=== PATIENT | male | born 1945 | race Caucasian/White ===

== ENCOUNTER 2018-01-11 12:02 | Outpatient (CLI) | payer MEDICARE, BC ==
--- NOTE | 2018-01-11 14:02 | RAD ---
CHEST 2 VIEWS: Date: 01/11/18 HISTORY: Fall. Chest pain. FINDINGS: Cardiac silhouette and pulmonary vasculature unremarkable. Parenchymal opacity at the left base parti ally obscures the left anterior hemidiaphragm. No lobar consolidation, pneumothorax, or pleural fluid are apparent. There are degenerative changes of the thoracic spine. No displaced rib fractures are a pparent on the 2 view chest exam. IMPRESSION: Left basilar parenchymal opacity could represent atelectasis, pneumonitis, or contusion. No active ca rdiopulmonary abnormalities are otherwise demonstrated. POS: [facility]
== END 2018-01-11 12:03 | disposition home or self-care (01) ==
LOC: SCSRAD 12:02
PROVIDERS: ATTEND Family Medicine
DX: J18.9 Pneumonia, unspecified organism (principal); J44.9 Chronic obstructive pulmonary disease, unspecified
CPT/HCPCS: 71046

== ENCOUNTER 2018-08-29 15:10 | Outpatient (CLI) | payer MEDICARE, BC ==
--- NOTE | 2018-08-29 17:07 | RAD ---
CHEST TWO VIEWS: Indication: Shortness of breath. IMPRESSION: No acute cardiopulmonary abnormality. The examination does not appear appreciably changed from compar mahad dated 01-11-18. POS: [facility]
== END 2018-08-29 15:11 | disposition home or self-care (01) ==
LOC: SCSRAD 15:10
PROVIDERS: ATTEND Family Medicine
DX: J44.9 Chronic obstructive pulmonary disease, unspecified (principal); R05 Cough
CPT/HCPCS: 71046

== ENCOUNTER 2018-12-23 14:59 | Outpatient (CLI) | payer MEDICARE, BC ==
--- NOTE | 2018-12-23 15:21 | RAD ---
EXAM: 3 views of the lumbosacral spine HISTORY: Low back pain and right hip pain for 2 weeks COMPARISON: None FINDINGS: 3 views of the lumbosacral spine shows normal height and alignment of the vertebral bodies and intervertebral discs without fracture or subluxation. Moderate osteophytes are seen in the mid lumbar spine. The sacroiliac joints are unremarkable. Vascular calcic lesions are seen. A stent graft is seen in th e left common iliac artery. IMPRESSION: Moderate degenerative changes of the lumbar spine without acute osseous abnormality.
--- NOTE | 2018-12-23 15:33 | RAD ---
AP PELVIS RADIOGRAPH: 12/23/18 HISTORY: Right hip pain for two weeks. COMPARISON: None available. FINDINGS: No fracture or dislocation is appreciated on this AP view of the pelvis. No sclerotic or lytic osseou s lesions are identified. Vascular calcifications are seen in the iliac and femoral arteries. Vascula r stent overlies the region of the distal left common as well as proximal left external iliac arterie s. IMPRESSION: 1. No acute osseous abnormality. 2. Vascular calcifications. POS: [facility]
== END 2018-12-23 15:00 | disposition home or self-care (01) ==
LOC: SCSRAD 14:59
PROVIDERS: ATTEND Family Medicine
DX: M54.5 Low back pain (principal); M47.816 Spondylosis without myelopathy or radiculopathy, lumbar region; I70.209 Unspecified atherosclerosis of native arteries of extremities, unspecified extremity
CPT/HCPCS: 72100; 72170

== ENCOUNTER 2019-06-08 10:22 | Outpatient (CLI) | payer MEDICARE, BC ==
--- NOTE | 2019-06-08 11:33 | MRI ---
MR the lumbar spine without contrast INDICATION: Low back pain and bilateral hip pain COMPARISON: Lumbar spinal radiograph dated December 23, 2018 TECHNIQUE: Multiplanar multisequence MR images were obtained of lumbar spine without IV contrast. FINDINGS: Bone marrow: Bone marrow signal intensity appears within normal limits. Distal spinal cord and conus: Normal. The conus seen to terminate at L1. Visualized retroperitoneum and paraspinal soft tissues: Normal. Vertebral levels: L5-S1: There is a broad-based bulge with a superimposed central protrusion. There is moderate right a nd mild left facet joint degenerative change. There is no appreciable central canal or neural foraminal narrowing.. L4-5: There is a broad-based bulge with facet joint degenerative change. There is a superimposed ante rior medial projecting synovial cyst measuring 6 mm off the right L4-5 facet complex. The constellation of findings induces severe central canal narrowing with moderate to severe right and mi ld left neural foraminal narrowing. L3-4: There is a broad-based bulge with facet joint degenerative change and ligamentum flavum hypertr ophy inducing moderate central canal narrowing with moderate bilateral neural foraminal narrowing L2-3: There is a broad-based bulge with facet hypertrophy inducing mild central canal narrowing and m ild bilateral neural foraminal narrowing L1-L2: No appreciable central canal or neuroforaminal narrowing. T12-L1: No appreciable central canal or neuroforaminal narrowing. IMPRESSION: 1. Severe central canal narrowing with moderate to severe right and mild left neural foraminal narrow ing at L4-5. 2. Moderate central canal narrowing moderate bilateral neural foraminal narrowing at L3-4. 3. Mild central canal narrowing mild bilateral neural foraminal narrowing at L2-3.
== END 2019-06-08 10:23 | disposition home or self-care (01) ==
LOC: BICMRI 10:22
PROVIDERS: ATTEND Family Medicine
DX: M54.9 Dorsalgia, unspecified (principal); M48.061 Spinal stenosis, lumbar region without neurogenic claudication
CPT/HCPCS: 72148

== ENCOUNTER 2019-09-20 10:47 | Outpatient (CLI) | payer MEDICARE, BC ==
--- NOTE | 2019-09-20 12:11 | RAD ---
LUMBAR SPINE 4 VIEWS: Date: 09/20/2019 HISTORY: Low back pain. M54.5. Left leg numbness. COMPARISON: 12/23/2018. FINDINGS: Multilevel disc osteophytosis. Mild anterolisthesis of L4 on L5 without abnormal translation between flexion and extension. IMPRESSION: Multilevel spondylosis. Very mild anterolisthesis at L4-L5 without abnormal translation. POS: [facility]
== END 2019-09-20 10:48 | disposition home or self-care (01) ==
LOC: TBSIIMAG 10:47
PROVIDERS: ATTEND Surgery
DX: M54.5 Low back pain (principal); M43.16 Spondylolisthesis, lumbar region; M47.816 Spondylosis without myelopathy or radiculopathy, lumbar region
CPT/HCPCS: 72110

== ENCOUNTER 2019-11-20 07:50 | Outpatient (CLI) | payer MEDICARE, BC, OTHER ==
[2019-11-20 15:35] VITALS: BMI 31.8
[2019-11-20 17:22] LABS: #Basophils 0.1 thou/uL (0.0-0.2); #Eosinphils 0.3 thou/uL (0.0-0.7); #Lymphocytes 2.7 thou/uL (1.20-3.40); #Neutrophils 4.7 thou/uL (1.40-6.50); %Eosinophils 3.9 % (0.0-10.0); %Lymphocytes 30.7 % (21.0-51.0); %Monocytes 11.3 % (0.0-10.0); %Neutrophils 53.1 % (42.0-75.0); Hemoglobin 17.2 g/dL (14.0-18.0); Mean Corpuscular HGB CONC 32.6 g/dL (32.0-36.0); Mean Corpuscular Hemoglobin 30.5 pg (27.0-31.0); Mean Corpuscular Volume 93.5 fL (78.0-98.0); Mean Platelet Volume 8.7 fL (7.4-10.4); Platelet Count 217 thou/uL (130-400); RBC Distribution Width 12.6 % (11.5-14.5); Red Blood Cell (RBC) Count 5.63 mill/uL (4.70-6.10); White Blood Cell (WBC) Count 8.8 thou/uL (4.8-10.8)
[2019-11-20 17:24] LABS: INR-International Normal Ratio 0.9; PTT 27.5 SEC (22.9-36.1)
[2019-11-20 17:39] LABS: Anion Gap 14 mmol/L (10-20); BUN (Urea Nitrogen) 17 mg/dL (8.4-25.7); Calc. Creatinine Clearance 80 mL/min (70-130); Carbon Dioxide 22 mmol/L (23-31); Chloride 108 mmol/L (98-107); Estimated GFR-MDRD 58; Glucose 174 mg/dL (83-110); Potassium 3.9 mmol/L (3.5-5.1); Sodium 140 mmol/L (136-145)
--- NOTE | 2019-11-20 21:16 | EKG ---
Test Reason : Blood Pressure : / mmHG Vent. Rate : 076 BPM Atrial Rate : 076 BPM P-R Int : 162 ms QRS Dur : 092 ms QT Int : 378 ms P-R-T Axes : 023 -24 000 degrees QTc Int : 425 ms Normal sinus rhythm Moderate voltage criteria for LVH, may be normal variant Inferior infarct , age undetermined Abnormal ECG No previous ECGs available Confirmed by Jose Luis FERGUSON ([id number]) on 11/20/2019 9:16:23 PM Referred By: MIGUEL Confirmed By:Jose Luis FERGUSON
[2019-11-21 11:24] LABS: SARS-CoV-2 MS2 Positive; SARS-CoV-2 N Gene Negative; SARS-CoV-2 S Gene Negative; SARS-CoV-2 orf1ab Negative
== END 2019-11-20 07:51 | disposition home or self-care (01) ==
LOC: LABBT 07:50
PROVIDERS: ATTEND Surgery
DX: Z01.818 Encounter for other preprocedural examination (principal); Z11.59 Encounter for screening for other viral diseases; M48.061 Spinal stenosis, lumbar region without neurogenic claudication; M54.16 Radiculopathy, lumbar region; M71.30 Other bursal cyst, unspecified site
CPT/HCPCS: 80048; 85025; 85610; 85730; 93005; U0003; 87635; 93010